=== PATIENT | female | born 1950 | race Caucasian/White ===

== ENCOUNTER → 2016-12-07 | Outpatient (CLI) | payer MEDICAID ==
[~2016-12-07] MED LIST: ALBU8.5H3 INH; ATEN25TA PO; CHOL500014 PO; ESOM40CA PO; FLUT1DIS3 INH; FOLI-17 PO; FURO-92 PO; HYDR200T PO; LEVO500T33 PO; METR500T PO; MYCO500T PO; NITR0.4T PO; PHEN100C PO; POTA20PA PO; PRED10TA14 PO; PRED5TAB PO; ROSU10TA PO; WARF10TA PO; WARF5TAB PO; WARF7.5T6 PO
== END | disposition home or self-care (01) ==
LOC: CFH 07:12
PROVIDERS: ATTEND Internal Medicine Cardiovascular Disease
DX: I08.3 Combined rheumatic disorders of mitral, aortic and tricuspid valves (principal); I37.1 Nonrheumatic pulmonary valve insufficiency; I51.7 Cardiomegaly; I25.2 Old myocardial infarction; I10 Essential (primary) hypertension; E78.5 Hyperlipidemia, unspecified; Z86.73 Personal history of transient ischemic attack (TIA), and cerebral infarction without residual deficits
CPT/HCPCS: 93306

== ENCOUNTER 2017-11-22 22:01 | Emergency (ER) | payer MEDICAID ==
[~2017-11-22] VITALS: Ht 167.6 cm; Wt 95.3 kg
[~2017-11-22 22:01] MED LIST changes: -ALBU8.5H3 INH; +ALBU8.5H8 INH; -CHOL500014 PO; +CHOL500045 PO; -HYDR200T PO; +HYDR200T72 PO; -LEVO500T33 PO; +LEVO500T47 PO
[2017-11-22] MEDS ORDERED: ASPIRIN 81 MG TABLET CHEW PO ONE (23:00)
[2017-11-22] MEDS ORDERED: SODIUM CHLORIDE FLUSH 10ML SYR IVF ONE (23:00)
[2017-11-22] MEDS ORDERED: ASPIRIN 81 MG TABLET CHEW ONE (23:23)
[2017-11-22 23:28] LABS: BASOPHILS # (AUTO) 0.02 x10^3/uL (0-0.1); BASOPHILS % (AUTO) 0 % (0-1); EOSINOPHILS # (AUTO) 0.07 x10^3/uL (0-0.4); EOSINOPHILS % (AUTO) 1 % (1-7); LYMPHOCYTES # (AUTO) 1.57 x10^3/uL (1-3.4); LYMPHOCYTES % (AUTO) 28 % (22-44); MD NO; MEAN CORPUSCULAR HEMOGLOBIN 29.4 pg (27.0-34.8); MEAN CORPUSCULAR HGB CONC 33.6 g/dL (32.4-35.8); MEAN CORPUSCULAR VOLUME 87.7 fL (80-100); MEAN PLATELET VOLUME 9.1 fL (7.4-10.4); MONOCYTES # (AUTO) 0.42 x10^3/uL (0.2-0.8); MONOCYTES % (AUTO) 8 % (2-9); NEUTROPHILS # (AUTO) 3.47 x10^3/uL (1.8-6.8); NEUTROPHILS % (AUTO) 63 % (42-75); PLATELET COUNT 114 x10^3/uL (130-400); RED BLOOD COUNT 3.93 x10^6/uL (3.82-5.3); RED CELL DISTRIBUTION WIDTH 15.5 % (9.6-15.2)
[2017-11-22 23:39] LABS: ALBUMIN 3.5 g/dL (3.4-5.0); ANION GAP 8 mmol/L (5-15); CALCIUM 8.2 mg/dL (8.5-10.1); CHLORIDE 109 mmol/L (98-107); CREATININE 1.26 mg/dL (0.55-1.02)
[2017-11-22 23:43] LABS: TROPONIN I < 0.015 ng/mL (0.000-0.045)
[2017-11-23 00:07] VITALS: BP 145/73
== END 2017-11-23 00:10 | disposition home or self-care (01) ==
LOC: ED 23:59
DX: M79.622 Pain in left upper arm (principal); R22.1 Localized swelling, mass and lump, neck; E78.00 Pure hypercholesterolemia, unspecified; I10 Essential (primary) hypertension; I25.2 Old myocardial infarction; J45.909 Unspecified asthma, uncomplicated
CPT/HCPCS: 36415; 71045; 76536; 80048; 82040; 84484; 85025; 93005; 99285

== ENCOUNTER → 2017-12-08 | Outpatient (CLI) | payer MEDICAID ==
[~2017-12-08] MED LIST changes: +REGADENOSON 0.4 MG/5 ML SYRINGE ONE
== END | disposition home or self-care (01) ==
LOC: CVU 10:41
PROVIDERS: ATTEND Internal Medicine Cardiovascular Disease
DX: I08.0 Rheumatic disorders of both mitral and aortic valves (principal); I10 Essential (primary) hypertension; E78.5 Hyperlipidemia, unspecified; I25.10 Atherosclerotic heart disease of native coronary artery without angina pectoris; Z86.73 Personal history of transient ischemic attack (TIA), and cerebral infarction without residual deficits
CPT/HCPCS: 78452; 93017; 93306; A9502; J2785

== ENCOUNTER 2017-12-09 18:07 | Emergency (ER) | payer MEDICAID ==
[~2017-12-09] VITALS: Ht 167.6 cm; Wt 94.9 kg
[~2017-12-09 18:07] MED LIST changes: -REGADENOSON 0.4 MG/5 ML SYRINGE ONE
[2017-12-09 20:03] VITALS: BP 136/88
== END 2017-12-09 20:04 | disposition home or self-care (01) ==
LOC: ED 19:58
DX: S63.637A Sprain of interphalangeal joint of left little finger, initial encounter (principal); S80.02XA Contusion of left knee, initial encounter; S80.01XA Contusion of right knee, initial encounter; I10 Essential (primary) hypertension; E78.00 Pure hypercholesterolemia, unspecified; M32.9 Systemic lupus erythematosus, unspecified; J45.909 Unspecified asthma, uncomplicated; I25.2 Old myocardial infarction; W01.0XXA Fall on same level from slipping, tripping and stumbling without subsequent striking against object, initial encounter; Y93.89 Activity, other specified; Y92.480 Sidewalk as the place of occurrence of the external cause; Y99.8 Other external cause status; Z86.711 Personal history of pulmonary embolism; Z86.73 Personal history of transient ischemic attack (TIA), and cerebral infarction without residual deficits
CPT/HCPCS: 99284

== ENCOUNTER 2017-12-15 18:02 | Emergency (ER) | payer MEDICAID ==
[~2017-12-15] VITALS: Ht 167.6 cm; Wt 93.0 kg
[2017-12-15] MEDS ORDERED: SODIUM CHLORIDE FLUSH 10ML SYR IVF ONE (18:30)
[2017-12-15] MEDS ORDERED: PLEASE ENTER HEIGHT AND WEIGHT MC SCH (18:30)
[2017-12-15 18:57] LABS: BASOPHILS # (AUTO) 0.01 x10^3/uL (0-0.1); BASOPHILS % (AUTO) 0 % (0-1); EOSINOPHILS # (AUTO) 0.07 x10^3/uL (0-0.4); EOSINOPHILS % (AUTO) 1 % (1-7); LYMPHOCYTES # (AUTO) 1.69 x10^3/uL (1-3.4); LYMPHOCYTES % (AUTO) 31 % (22-44); MD NO; MEAN CORPUSCULAR HEMOGLOBIN 29.8 pg (27.0-34.8); MEAN CORPUSCULAR VOLUME 87.7 fL (80-100); MEAN PLATELET VOLUME 9.7 fL (7.4-10.4); MONOCYTES # (AUTO) 0.51 x10^3/uL (0.2-0.8); MONOCYTES % (AUTO) 9 % (2-9); NEUTROPHILS # (AUTO) 3.13 x10^3/uL (1.8-6.8); NEUTROPHILS % (AUTO) 58 % (42-75); PLATELET COUNT 128 x10^3/uL (130-400); RED BLOOD COUNT 4.16 x10^6/uL (3.82-5.3); RED CELL DISTRIBUTION WIDTH 15.3 % (9.6-15.2)
[2017-12-15 19:00] LABS: ALANINE AMINOTRANSFERASE 23 U/L (12-78); ALBUMIN 3.6 g/dL (3.4-5.0); ANION GAP 9 mmol/L (5-15); CALCIUM 8.5 mg/dL (8.5-10.1); CHLORIDE 109 mmol/L (98-107); CREATININE 1.54 mg/dL (0.55-1.02)
[2017-12-15 19:05] LABS: ALKALINE PHOSPHATASE 137 U/L (45-117); BILIRUBIN,TOTAL 0.2 mg/dL (0.2-1.0); TOTAL PROTEIN 6.8 g/dL (6.4-8.2); TROPONIN I < 0.015 ng/mL (0.000-0.045)
[2017-12-15 19:29] VITALS: BP 100/68
[2017-12-15] MEDS ORDERED: HYDROcodone/APAP 10/325 MG TABLET ONE (19:43)
[2017-12-15] MEDS ORDERED: OXYcodone/APAP 10/325MG TABLET PO ONE (20:00)
== END 2017-12-15 20:14 | disposition home or self-care (01) ==
LOC: ED 19:40
DX: S22.32XA Fracture of one rib, left side, initial encounter for closed fracture (principal); I25.2 Old myocardial infarction; I10 Essential (primary) hypertension; E78.00 Pure hypercholesterolemia, unspecified; J45.909 Unspecified asthma, uncomplicated; W01.0XXA Fall on same level from slipping, tripping and stumbling without subsequent striking against object, initial encounter; Y93.89 Activity, other specified; Y92.89 Other specified places as the place of occurrence of the external cause; Y99.8 Other external cause status
CPT/HCPCS: 36415; 71045; 71250; 80053; 84484; 85025; 93005; 99285

== ENCOUNTER 2018-01-28 13:14 | Emergency (ER) | payer MEDICARE, MEDICAID ==
[~2018-01-28] VITALS: Ht 165.1 cm; Wt 90.0 kg
[~2018-01-28 13:14] MED LIST changes: +WARF7.5T46 PO; -WARF7.5T6 PO
[2018-01-28] MEDS ORDERED: HYDROmorphone 1 MG/ML, 1ML IM ONE (14:00)
[2018-01-28] MEDS ORDERED: ONDANSETRON ODT 4 MG PO ONE (14:00)
[2018-01-28] MEDS ORDERED: ONDANSETRON ODT 4 MG ONE (14:04)
[2018-01-28] MEDS ORDERED: HYDROmorphone 2 MG/ML, 1ML ONE (14:04)
[2018-01-28 16:07] VITALS: BP 127/70
== END 2018-01-28 16:10 | disposition home or self-care (01) ==
LOC: ED 15:00
DX: S52.515A Nondisplaced fracture of left radial styloid process, initial encounter for closed fracture (principal); I10 Essential (primary) hypertension; E78.00 Pure hypercholesterolemia, unspecified; I25.2 Old myocardial infarction; M32.9 Systemic lupus erythematosus, unspecified; J45.909 Unspecified asthma, uncomplicated; Z86.73 Personal history of transient ischemic attack (TIA), and cerebral infarction without residual deficits; Z86.711 Personal history of pulmonary embolism; W01.198A Fall on same level from slipping, tripping and stumbling with subsequent striking against other object, initial encounter; Y93.89 Activity, other specified; Y92.89 Other specified places as the place of occurrence of the external cause; Y99.8 Other external cause status
CPT/HCPCS: 29125; 73110; 96372; 99284; J1170; Q0162

== ENCOUNTER 2018-10-04 17:30 | Emergency (ER) | payer MEDICARE, MEDICAID ==
[~2018-10-04] VITALS: Ht 165.1 cm; Wt 94.1 kg
[~2018-10-04 17:30] MED LIST changes: -POTA20PA PO; +POTA20PA31 PO
[2018-10-04 17:42] VITALS: BP 107/70
--- NOTE | 2018-10-04 17:51 | NUR ---
BREAK RN. PT AMBULATORY TO [facility] FROM TRIAGE WITH STEADY GAIT. NAD NOTED. ACCOMPANIED BY FAMILY. PANCHO JEAN-BAPTISTE AT BEDSIDE FOR EVALUATION. CALL LIGHT IN REACH. FALL PRECAUTIONS IN PLACE.
--- NOTE | 2018-10-04 18:15 | NUR ---
REPORT AND CARE TO CHAU BACON AT THIS TIME.
== END 2018-10-04 18:39 | disposition home or self-care (01) ==
LOC: ED 18:24
DX: S80.02XA Contusion of left knee, initial encounter (principal); F17.200 Nicotine dependence, unspecified, uncomplicated; I25.2 Old myocardial infarction; I10 Essential (primary) hypertension; E78.00 Pure hypercholesterolemia, unspecified; Z90.710 Acquired absence of both cervix and uterus; Z86.73 Personal history of transient ischemic attack (TIA), and cerebral infarction without residual deficits; W01.0XXA Fall on same level from slipping, tripping and stumbling without subsequent striking against object, initial encounter; Y93.89 Activity, other specified; Y92.89 Other specified places as the place of occurrence of the external cause; Y99.8 Other external cause status
CPT/HCPCS: 99284

== ENCOUNTER → 2018-11-26 | Outpatient (CLI) | payer MEDICARE, MEDICAID ==
[~2018-11-26] MED LIST changes: -ROSU10TA PO; +ROSU10TA2 PO
== END | disposition home or self-care (01) ==
LOC: CFH 11:54
PROVIDERS: ATTEND Internal Medicine Cardiovascular Disease
DX: I08.0 Rheumatic disorders of both mitral and aortic valves (principal); I11.9 Hypertensive heart disease without heart failure; I25.10 Atherosclerotic heart disease of native coronary artery without angina pectoris; E78.5 Hyperlipidemia, unspecified
CPT/HCPCS: 93306

== ENCOUNTER 2019-03-19 07:49 | Outpatient (CLI) | payer MEDICARE, MEDICAID | END 2019-03-19 23:59 | disposition home or self-care (01) | LOC: CFH 07:49 | PROVIDERS: ATTEND Registered Nurse | DX: Z01.810 Encounter for preprocedural cardiovascular examination (principal); I25.10 Atherosclerotic heart disease of native coronary artery without angina pectoris | CPT/HCPCS: 78452; 93017; A9502; J2785 ==

== ENCOUNTER 2019-10-05 11:44 | Emergency (ER) | payer MEDICARE, MEDICAID ==
[~2019-10-05] VITALS: Ht 165.1 cm; Wt 93.0 kg
[~2019-10-05 11:44] MED LIST changes: -NITR0.4T PO; +NITR0.4T41 PO
[2019-10-05 12:20] VITALS: BP 125/84
--- NOTE | 2019-10-05 12:25 | NUR ---
PT TO XRAY, PT SEEN AND EXAMINED BY EDPA, PER PA NO EKG INDICATED AT THIS TIME.
== END 2019-10-05 13:24 | disposition home or self-care (01) ==
LOC: ED 13:23
DX: J06.9 Acute upper respiratory infection, unspecified (principal); R05 Cough; I10 Essential (primary) hypertension; J45.909 Unspecified asthma, uncomplicated; I25.2 Old myocardial infarction; E78.00 Pure hypercholesterolemia, unspecified; Z86.73 Personal history of transient ischemic attack (TIA), and cerebral infarction without residual deficits; Z90.710 Acquired absence of both cervix and uterus
CPT/HCPCS: 71046; 93005; 99283

== ENCOUNTER 2019-10-12 13:00 | Emergency (ER) | payer MEDICARE, MEDICAID ==
[~2019-10-12] VITALS: Ht 165.1 cm; Wt 95.3 kg
[2019-10-12 13:12] VITALS: BP 110/74
--- NOTE | 2019-10-12 13:31 | NUR ---
PT HERE WITH C/O COUGH X 3 WEEKS, STATES SEEN BEFORE AND SENT HOME WITH MEDS THAT "ARE NOT HELPING AT ALL AND THE STUFF IS SO GREEN AND THICK I'M COUGHING UP."
--- NOTE | 2019-10-12 13:53 | NUR ---
PT TO XRAY.
--- NOTE | 2019-10-12 14:05 | NUR ---
PT BACK FROM XRAY.
[2019-10-12] MEDS ORDERED: EZET10TA48 PO (14:15)
[2019-10-12] MEDS ORDERED: MYCO250C4 PO (14:15)
[2019-10-12] MEDS ORDERED: ROSU40TA22 PO (14:15)
[2019-10-12] MEDS ORDERED: AMLO2.5T5 PO (14:15)
[2019-10-12] MEDS ORDERED: NITR0.4T28 SL (14:17)
[2019-10-12] MEDS ORDERED: OMEP40CA42 PO (14:17)
== END 2019-10-12 14:34 | disposition home or self-care (01) ==
LOC: ED 14:00
DX: J18.1 Lobar pneumonia, unspecified organism (principal); R07.89 Other chest pain; I10 Essential (primary) hypertension; I25.2 Old myocardial infarction; J45.909 Unspecified asthma, uncomplicated; M32.9 Systemic lupus erythematosus, unspecified; Z86.73 Personal history of transient ischemic attack (TIA), and cerebral infarction without residual deficits
CPT/HCPCS: 71046; 99283

== ENCOUNTER → 2019-12-27 | Outpatient (CLI) | payer MEDICARE, MEDICAID ==
[~2019-12-27] MED LIST changes: +AMLO2.5T5 PO; +EZET10TA48 PO; +MYCO250C4 PO; +NITR0.4T28 SL; +OMEP40CA42 PO; +ROSU40TA22 PO
== END | disposition home or self-care (01) ==
LOC: CVU 08:45
PROVIDERS: ATTEND Internal Medicine Cardiovascular Disease
DX: I08.8 Other rheumatic multiple valve diseases (principal); I11.9 Hypertensive heart disease without heart failure; I25.10 Atherosclerotic heart disease of native coronary artery without angina pectoris
CPT/HCPCS: 93306

== ENCOUNTER 2020-01-28 02:33 | Emergency (ER) | payer MEDICARE, MEDICAID ==
[~2020-01-28] VITALS: Ht 165.1 cm; Wt 88.6 kg
[2020-01-28] MEDS ORDERED: ACETAMINOPHEN 500 MG TABLET ONE (03:20)
[2020-01-28 03:22] LABS: BASOPHILS # (AUTO) 0.01 x10^3/uL (0-0.1); BASOPHILS % (AUTO) 0 % (0-1); EOSINOPHILS # (AUTO) 0.04 x10^3/uL (0-0.4); EOSINOPHILS % (AUTO) 0 % (1-7); LYMPHOCYTES # (AUTO) 1.21 x10^3/uL (1-3.4); LYMPHOCYTES % (AUTO) 14 % (22-44); MD NO; MEAN CORPUSCULAR HEMOGLOBIN 29.2 pg (27.0-34.8); MEAN CORPUSCULAR HGB CONC 33.3 g/dL (32.4-35.8); MEAN CORPUSCULAR VOLUME 87.8 fL (80-100); MONOCYTES # (AUTO) 0.62 x10^3/uL (0.2-0.8); MONOCYTES % (AUTO) 7 % (2-9); NEUTROPHILS # (AUTO) 6.97 x10^3/uL (1.8-6.8); NEUTROPHILS % (AUTO) 79 % (42-75); PLATELET COUNT 140 x10^3/uL (130-400); RED BLOOD COUNT 3.75 x10^6/uL (3.82-5.3); RED CELL DISTRIBUTION WIDTH 15.4 % (9.6-15.2)
--- NOTE | 2020-01-28 03:25 | NUR ---
PT TO ED WITH C/O BILATERAL SHOULDER PAIN. DENIES ANY FEVER, CHEST PAIN, SHORTNESS OF BREATH OR TROUBLE BREATHING. PT PLACED ON INCOME TAX ADJUSTER AND CONTINUOUS PULSE OX. GIVEN TYLENOL PER EMAR.
[2020-01-28] MEDS ORDERED: ACETAMINOPHEN 500 MG TABLET PO ONE (03:30)
[2020-01-28 03:31] LABS: ALBUMIN 3.6 g/dL (3.4-5.0); ANION GAP 8 mmol/L (5-15); CALCIUM 8.8 mg/dL (8.5-10.1); CHLORIDE 108 mmol/L (98-107)
[2020-01-28 03:36] LABS: CREATININE 1.94 mg/dL (0.55-1.02); TROPONIN I < 0.015 ng/mL (0.000-0.045)
[2020-01-28 03:56] LABS: INTERNATIONAL NORMALIZED RATIO 5.99 (0.93-1.1); PROTHROMBIN TIME 64.6 Seconds (9.6-11.5)
[2020-01-28] MEDS ORDERED: OXYcodone IR 5MG TABLET ONE (04:16)
[2020-01-28] MEDS ORDERED: OXYcodone IR 5MG TABLET PO ONE (04:30)
[2020-01-28 04:34] VITALS: BP 139/68
== END 2020-01-28 04:36 | disposition home or self-care (01) ==
LOC: ED 04:20
DX: M25.512 Pain in left shoulder (principal); M25.511 Pain in right shoulder; R19.7 Diarrhea, unspecified; I51.7 Cardiomegaly; I21.9 Acute myocardial infarction, unspecified; E78.00 Pure hypercholesterolemia, unspecified; J45.909 Unspecified asthma, uncomplicated; I10 Essential (primary) hypertension; Z90.710 Acquired absence of both cervix and uterus; Z79.01 Long term (current) use of anticoagulants; Z86.73 Personal history of transient ischemic attack (TIA), and cerebral infarction without residual deficits
CPT/HCPCS: 36415; 71045; 80048; 82040; 84484; 85025; 85610; 93005; 99285

== ENCOUNTER 2020-02-20 10:32 | Emergency (ER) | payer MEDICARE, MEDICAID ==
[~2020-02-20] VITALS: Ht 165.1 cm; Wt 88.3 kg
[~2020-02-20 10:32] MED LIST changes: -WARF5TAB PO; +WARF5TAB2 PO
[2020-02-20 10:37] VITALS: BP 110/61
--- NOTE | 2020-02-20 10:56 | NUR ---
LEFT HAND BRUISED AND SWOLLEN AFTER 7 MONTH OLD PUPPY BIT HER HAND. DOG UTD ON VACCINES PATIENT INR 7.1 ON CHECK TODAY (COUMADIN TOO HIGH TODAY) CMS INTACT
--- NOTE | 2020-02-20 11:09 | NUR ---
HAND ELEVATED, ICE PACK APPLIED
--- NOTE | 2020-02-20 11:10 | NUR ---
XR AT BEDSIDE
[2020-02-20] MEDS ORDERED: PHYTONADIONE 5 MG TABLET PO ONE (11:30)
--- NOTE | 2020-02-20 11:40 | NUR ---
medication request sent to pharmacy for vit k pill
--- NOTE | 2020-02-20 11:50 | NUR ---
DISCHARGED HOME DESPITE RECENT MEDICATION PATIENT HAS TAKEN PO VIT K BEFORE (NO ISSUE) IS WELL VERSED IN DEALING WITH HER COAGULOPATHY AND IS IN THE CARE OF HER COMPETENT
== END 2020-02-20 11:51 | disposition home or self-care (01) ==
LOC: ED 11:50
DX: S61.452A Open bite of left hand, initial encounter (principal); S60.222A Contusion of left hand, initial encounter; Z88.6 Allergy status to analgesic agent; W54.0XXA Bitten by dog, initial encounter; Y93.89 Activity, other specified; Y92.009 Unspecified place in unspecified non-institutional (private) residence as the place of occurrence of the external cause; Y99.8 Other external cause status
CPT/HCPCS: 99283

== ENCOUNTER → 2020-04-01 | Outpatient (CLI) | payer MEDICARE, MEDICAID ==
[2020-04-01 12:53] LABS: INTERNATIONAL NORMALIZED RATIO 3.02 (0.93-1.1); PROTHROMBIN TIME 32.4 Seconds (9.6-11.5)
== END | disposition home or self-care (01) ==
LOC: CFH 09:03
PROVIDERS: ATTEND Nurse Practitioner Family
DX: Z51.81 Encounter for therapeutic drug level monitoring (principal); Z79.01 Long term (current) use of anticoagulants
CPT/HCPCS: 36415; 85610